=== PATIENT | female | born 1980 | race Caucasian/White ===

== ENCOUNTER → 2017-07-07 | Outpatient (CLI) | payer OTHER | LOC: FIMAGING 09:49 | PROVIDERS: ATTEND Advanced Practice Midwife | DX: O99.512 Diseases of the respiratory system complicating pregnancy, second trimester (principal); O34.219 Maternal care for unspecified type scar from previous cesarean delivery; O09.522 Supervision of elderly multigravida, second trimester; J45.40 Moderate persistent asthma, uncomplicated; Z79.51 Long term (current) use of inhaled steroids; Z3A.19 19 weeks gestation of pregnancy ==